=== PATIENT | female | born 1990 | race Caucasian/White ===

== ENCOUNTER → 2024-01-20 | Emergency (ER) | payer BC, OTHER ==
[~2024-01-20] MED LIST: ASPIRIN 81 MG CHEWABLE TABLET ONE; KETOROLAC 30 MG/ML INJ ONE; NA CHLORIDE 0.9% 1,000 ML ONE; POTASSIUM 25 MEQ EFFERV TAB ONE
[2024-01-20 19:15] LABS: Absolute Basophils 0.1 K/uL (0-0.5); Absolute Lymphocytes (CBC) 3.4 K/uL (0.7-4.9); Absolute Monocytes 0.4 K/uL (0.1-1.3); Absolute Neutrophil 3.4 K/uL (1.8-8.0); Basophils % 1.1 % (0-1.3); Eosinophils % 0.3 % (0-4.4); Hematocrit 40.2 % (36.0-45.0); Hemoglobin 13.7 g/dL (12.0-15.0); Lymphocytes % 46.7 % (15.3-44.8); MCH 31.5 pg (27.0-35.0); MCHC 34.1 g/dL (32.0-36.0); MCV 92.4 fL (80-100); MPV 8.2 fL (7.6-11.3); Monocytes % 5.9 % (3.3-12.3); Nucleated Red Blood Cells % 0.1 % (0-0); Platelets 289 thou/uL (152-406); RBC Red Blood Cell Count 4.35 M/uL (3.86-4.86); Red Cell Distribution Width 13.5 % (12.1-15.2)
[2024-01-20 19:19] LABS: PT Prothrombin Time 11.8 SECONDS (9.5-12.5); Protime INR 1.07
[2024-01-20 19:45] LABS: Specific Gravity < 1.005 (1.005-1.030)
[2024-01-20 19:47] LABS: ALT/SGPT 30 U/L (13-56); AST/SGOT 18 U/L (15-37); Albumin 3.8 g/dL (3.4-5.0); Alkaline Phosphatase 93 U/L (45-117); Anion Gap 8.4 mEq/L (5.0-15.0); BUN Blood Urea Nitrogen 7 mg/dL (7-18); Bicarbonate 26 mEq/L (21-32); Bilirubin Total 0.3 mg/dL (0.2-1.0); Glomerular Filtration Rate 81 ml/min (=/>90); Glucose Level 108 mg/dL (74-106); Magnesium 2.2 mg/dL (1.6-2.4); NT PRO-BNP 12 pg/mL (<125); Potassium 3.4 mEq/L (3.5-5.1); Protein, Total 7.8 g/dL (6.4-8.2); Sodium Level 138 mEq/L (136-145)
[2024-01-20 19:52] LABS: Bilirubin Direct < 0.1 mg/dL (0-0.2); Bilirubin Indirect, Calculated ND mg/dL (0.2-0.8); Troponin High Sensitivity < 3.0 pg/mL (<58.9)
[2024-01-20 19:54] LABS: Barbiturates NEGATIVE (NEGATIVE); Benzodiazepines NEGATIVE (NEGATIVE); Cocaine NEGATIVE (NEGATIVE); METHAMPHETAM NEGATIVE (NEGATIVE); Methadone NEGATIVE (NEGATIVE); Opiates NEGATIVE (NEGATIVE); Phencyclidine NEGATIVE (NEGATIVE); THC Cannibis NEGATIVE (NEGATIVE)
[2024-01-20 20:11] LABS: Specific Gravity < 1.005 (1.005-1.030); Sqamous Epithelial <5 /HPF (None Seen); Urine Bacteria None Seen /HPF (<20); Urine Bilirubin NEGATIVE (Negative); Urine Blood Trace (Negative); Urine Clarity Clear (Clear); Urine Color Colorless (Yellow); Urine Culture Reflex Order NOT NEEDED; Urine Glucose NEGATIVE (Negative); Urine Ketones NEGATIVE (Negative); Urine Micro Reflex YN NO BILL MICROSCOPIC; Urine Nitrite NEGATIVE (Negative); Urine Protein NEGATIVE (Negative); Urine RBC <5 /HPF (None Seen); Urine Urobilinogen Normal (Normal); Urine WBC <5 /HPF (<5)
--- NOTE | 2024-01-20 21:02 | RAD REPORT ---
EXAM DESCRIPTION: CT - Angio Aorta For Dissection - 01/20/2024 8:40 pm CLINICAL HISTORY: . Chest and abd pain COMPARISON: None TECHNIQUE: Computed tomography angiography of the chest, abdomen pelvis were obtained. 100 cc Isovue 370 was administered intravenously. Coronal and sagittal reconstruction were performed. MIP 3D reconstruction was performed All CT scans are performed using dose optimization technique as appropriate and may include automated exposure control or mA/KV adjustment according to patient size. FINDINGS: An aortic dissection is not seen. An aortic aneurysm is not displayed. The celiac, SMA and OCTAVIO are patent . A lung consolidation is not present. A pericardial effusion is not seen. A pleural effusion is not no jeff. Prominent left lobe of liver. The spleen, pancreas, adrenals and kidneys do not demonstrate a significant abnormality There no evidence diverticulitis. Normal appendix. No adnexal mass Moderate amount of stool within the colon. Small umbilical hernia IMPRESSION: Negative for an aortic dissection.
--- NOTE | 2024-01-20 21:02 | RAD REPORT ---
EXAM DESCRIPTION: [facility] Single View01/20/2024 7:49 pm CLINICAL HISTORY: Chest pain COMPARISON: none FINDINGS: The lungs appear clear of acute infiltrate. The heart is normal size IMPRESSION: No acute abnormalities displayed
--- NOTE | 2024-01-20 22:53 | EDPHYS ---
Physician Documentation [facility] Name: Adriane Wiggins Age: 33 yrs Sex: Female : 1990 Arrival Date: 01/20/2024 Time: 18:51 Bed 6 Private MD: ED Physician Victor Hugo Reaves HPI: 01/19 19:00 This 33 yrs old Unknown Female presents to ER via Ambulatory with complaints of Chest cp Pain. 19:00 The patient or guardian reports chest pain that is located primarily in the substernal cp area. 19:00 The pain radiates to the left arm, left side of chest. cp 19:00 The chest pain is described as sharp. Duration: The patient or guardian reports a cp single episode, that is still ongoing, and unchanged, onset this morning at work. 19:00 Severity of pain: in the emergency department the pain is unchanged. Patient denies cp family history of early cardiac but reports mother and grandmother with histories of aneurysms. 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 - Social history:: Smoking status: Patient denies any tobacco usage or history of. - Code Status:: Full code. ROS: 19:05 Constitutional: Negative for body aches, chills, fever, poor PO intake, cp 19:05 Cardiovascular: Positive for chest pain, cp 19:05 Eyes: Negative for injury, pain, redness, and discharge, cp 19:05 ENT: Negative for drainage from ear(s), ear pain, sore throat, difficulty swallowing, difficulty handling secretions, 19:05 Respiratory: Negative for cough, shortness of breath, wheezing, 19:05 Abdomen/GI: Negative for abdominal pain, vomiting, diarrhea, constipation, 19:05 Back: Negative for radiated pain, 19:05 MS/extremity: Positive for pain, paresthesias, of the left arm, 19:05 Neuro: Negative for altered mental status, dizziness, headache, syncope, near syncope, cp weakness, 19:05 All other systems are negative, Exam: 19:10 Constitutional: The patient appears in no acute distress, alert, awake, cp non-diaphoretic, non-toxic, well developed, well nourished, uncomfortable, 19:10 Head/Face: Normocephalic, atraumatic. cp 19:10 Eyes: Periorbital structures: appear normal, Conjunctiva: normal, no exudate, no injection, Sclera: no appreciated abnormality, Lids and lashes: appear normal, bilaterally, 19:10 ENT: External ear(s): are unremarkable, Nose: is normal, Mouth: is normal, Posterior pharynx: Airway: no evidence of obstruction, patent, 19:10 Neck: ROM/movement: is normal, is supple, without pain, no range of motions limitations, 19:10 Chest/axilla: Inspection: normal, 19:10 Cardiovascular: Rate: tachycardic, Rhythm: regular, Pulses: Pulses are 2+ in right radial artery and left radial artery. Edema: is not appreciated, JVD: is not appreciated, 19:10 Respiratory: the patient does not display signs of respiratory distress, Respirations: normal, no use of accessory muscles, no retractions, labored breathing, is not present, Breath sounds: are clear throughout, no decreased breath sounds, no stridor, no wheezing, 19:10 Abdomen/GI: Inspection: abdomen appears normal, Palpation: abdomen is soft and non-tender, in all quadrants, 19:10 Back: pain, is absent, ROM is normal, 19:10 Neuro: Orientation: to person, place \T\ time. Mentation: is normal, Motor: moves all fours, strength is normal, Sensation: no obvious gross deficits, 19:12 ECG was reviewed by the Attending Physician. cp Vital Signs: 19:02 BP 130 / 94; Pulse 107; Resp 16; Temp 98.4; Pulse Ox 100% on R/A; Weight 74.84 kg; mb9 Height 5 ft. 5 in. ; 20:26 BP 116 / 73; Pulse 80; Resp 16; Pulse Ox 100% ; Pain 5/10; bm8 21:31 BP 119 / 94; Pulse 95; Resp 20; Temp 98.4; Pulse Ox 99% on R/A; Pain 4/10; bm8 22:32 BP 110 / 73; Pulse 87; Resp 16; Temp 98.4; Pulse Ox 100% ; Pain 4/10; bm8 23:11 BP 113 / 80; Pulse 100; Resp 20; Temp 98.1; Pulse Ox 99% on R/A; Pain 0/10; bm8 19:02 Body Mass Index 27.46 (74.84 kg, 165.1 cm) mb9 20:26 Pain Scale: Adult bm8 21:31 Pain Scale: Adult bm8 22:32 Pain Scale: Adult bm8 23:11 Pain Scale: Adult bm8 [place] Coma Score: 19:13 Eye Response: spontaneous(4). Motor Response: obeys commands(6). Verbal Response: bm8 oriented(5). Total: 15. MDM: 19:00 Patient medically screened. cp 20:00 Differential diagnosis: acute myocardial infarction, anxiety, chest wall pain, cp cholecystitis, Cholelithiasis costochondritis, esophagitis, pleurisy, pneumonia, pneumothorax, pulmonary embolus, thoracic aortic disection. 22:50 Data reviewed: vital signs, nurses notes, lab test result(s), EKG, radiologic studies, cp CT scan, plain films. 22:50 Independent interpretation of the following test(s) in the Emergency Department EKG: cp See my EKG interpretation above. Counseling: I had a detailed discussion with the patient and/or guardian regarding the historical points, exam findings, and any diagnostic results supporting the discharge/admit diagnosis, lab results, radiology results, the need for outpatient follow up, a ammonia solution preparer, to return to the emergency department if symptoms worsen or persist or if there are any questions or concerns that arise at home. Response to treatment: the patient's symptoms have markedly improved after treatment, and as a result, I will discharge patient. Special discussion: Based on the patient's history, exam, and Dx evaluation, there is no indication for emergent intervention or inpatient Tx. It is understood by the patient/guardian that if the Sx's persist or worsen they need to return immediately for re-evaluation. 01/19 19:04 Order name: Basic Metabolic Panel; Complete Time: 20:19 cp 01/19 20:19 Interpretation: Normal except: K 3.4; GLUC 108; GFR 81. cp 01/19 19:04 Order name: CBC with Diff; Complete Time: 19:36 cp 01/19 19:04 Order name: D-Dimer; Complete Time: 19:36 cp 01/19 19:04 Order name: LFT's; Complete Time: 20:19 cp 01/19 19:04 Order name: Magnesium; Complete Time: 20:19 cp 01/19 19:04 Order name: NT PRO-BNP; Complete Time: 20:19 cp 01/19 19:04 Order name: PT-INR; Complete Time: 19:36 cp 01/19 19:04 Order name: Troponin HS; Complete Time: 20:19 cp 01/19 19:04 Order name: Urinalysis W/Microscopic; Complete Time: 20:19 cp 01/19 19:04 Order name: UDS; Complete Time: 20:19 cp 01/19 19:04 Order name: Test, Urine; Complete Time: 20:19 cp 01/19 21:28 Order name: Troponin High Sensitivity: 3 hr repeat \[id number]; Complete Time: 22:50 cp 01/19 22:50 Interpretation: Reviewed. cp 01/19 19:04 Order name: XRAY Chest (1 view); Complete Time: 21:12 cp 01/19 21:12 Interpretation: Report review. cp 01/19 19:37 Order name: CT Aorta for Dissection; Complete Time: 21:12 cp 01/19 21:13 Interpretation: Report reviewed. cp 01/19 19:04 Order name: EKG; Complete Time: 19:04 cp 01/19 19:04 Order name: Cardiac monitoring; Complete Time: 19:05 cp 01/19 19:04 Order name: EKG - Nurse/Tech; Complete Time: 19:11 cp 01/19 19:04 Order name: IV Saline Lock; Complete Time: 19:05 cp 01/19 19:04 Order name: Labs collected and sent; Complete Time: 19:05 cp 01/19 19:04 Order name: O2 Per Protocol; Complete Time: 19:05 cp 01/19 19:04 Order name: O2 Sat Monitoring; Complete Time: 19:05 cp EC:12 Rate is 87 beats/min. Rhythm is regular. [place] interval is normal. QRS interval is normal. cp QT interval is normal. Interpreted by me. Reviewed by me. Administered Medications: 19:28 Drug: NS 0.9% IV 1000 ml IV at 1 bolus Per protocol; 1000 mL bolus Route: IV; Rate: 1 bm8 bolus; Site: right antecubital; 21:30 Follow up: IV Status: Completed infusion; IV Intake: 1000ml bm8 21:31 Not Given (Patient Refused): [id number] mg IVP once bm8 21:42 Drug: Aspirin PO Chewable Tablet 324 mg PO once; 81 mg tablets x 4 Route: PO; bm8 22:31 Follow up: Response: No adverse reaction bm8 23:11 Drug: Potassium PO Effervescent Tablet 25 mEq PO once; dissolve in 4 ounces of water or bm8 juice Route: PO; 23:11 Follow up: Response: No adverse reaction bm8 Disposition Summary: 01/20/24 22:52 Discharge Ordered Notes: Location: Home cp Problem: new cp Symptoms: have improved cp Condition: Stable cp Diagnosis - Chest pain, unspecified cp Followup: cp - With: Christopher Lacy MD - When: 2 - 3 days - Reason: Recheck today's complaints Discharge Instructions: - Discharge Summary Sheet cp - Nonspecific Chest Pain, Adult cp Forms: - Medication Reconciliation Form cp - Thank You Letter cp - Antibiotic Education cp - Prescription Opioid Use cp - Patient Portal Instructions cp - Leadership Thank You Letter cp Prescriptions: - Ibuprofen 800 mg Oral Tablet - take 1 tablet ORAL route every 8 hours As needed take with food; 30 tablet; cp Refills: 0, Product Selection Permitted Signatures: Dispatcher [employer] EDBennett Grady PA PA cp Breneman, Mary Beth RN RN mb9 Farhat Ley RN RN bm8
--- NOTE | 2024-01-20 22:53 | ER ---
Nurse's Notes [facility] Name: Adriane Wiggins Age: 33 yrs Sex: Female : 1990 Arrival Date: 01/20/2024 Time: 18:51 Bed 6 Private MD: Diagnosis: Chest pain, unspecified Presentation: 01/19 19:02 Chief complaint: Patient states: "I have left sided chest pain that started this mb9 morning and radiates down my left arm.". Coronavirus screen: Vaccine status: Patient reports receiving the 2nd dose of the covid vaccine. Ebola Screen: No symptoms or risks identified at this time. Initial Sepsis Screen: Does the patient meet any 2 criteria? No. Patient's initial sepsis screen is negative. Does the patient have a suspected source of infection? No. Patient's initial sepsis screen is negative. Risk Assessment: Do you want to hurt yourself or someone else? Patient reports no desire to harm self or others. Onset of symptoms was January 20, 2024. 19:02 Method Of Arrival: Ambulatory mb9 19:02 Acuity: VERONICA 3 mb9 Triage Assessment: 19:04 General: Appears in no apparent distress. Behavior is anxious. Pain: Complains of pain mb9 in chest Pain radiates to left arm. Pain: Quality of pain is described as dull, heavy, Pain began suddenly, Is continuous. EENT: No signs and/or symptoms were reported regarding the EENT system. Neuro: Level of Consciousness is awake, alert, obeys commands, Oriented to person, place, time, situation, Appropriate for age. Cardiovascular: Reports chest pain, Patient's skin is warm and dry. Respiratory: Airway is patent Respiratory effort is even, unlabored, Respiratory pattern is regular, symmetrical. GI: No signs and/or symptoms were reported involving the gastrointestinal system. Musculoskeletal: Range of motion: intact in all extremities. 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 - Social history:: Smoking status: Patient denies any tobacco usage or history of. - Code Status:: Full code. Screenin:13 [facility] ED Fall Risk Assessment (Adult) History of falling in the last 3 months, bm8 including since admission No falls in past 3 months (0 pts) Confusion or Disorientation No (0 pts) Intoxicated or Sedated No (0 pts) Impaired Gait No (0 pts) Mobility Assist Device Used No (0 pt) Altered Elimination No (0 pt) Score/Fall Risk Level 0 - 2 = Low Risk Oriented to surroundings, Maintained a safe environment, Educated pt \\T\\ family on fall prevention, incl call for assistance when getting out of bed. Abuse screen: Denies threats or abuse. Nutritional screening: No deficits noted. Tuberculosis screening: No symptoms or risk factors identified. Assessment: 19:13 Pain: Complains of pain in chest Pain does not radiate. Pain currently is 6 out of 10 bm8 on a pain scale. Quality of pain is described as dull. 19:13 Reassessment: Patient appears in no apparent distress at this time. Patient is alert, bm8 oriented x 3, equal unlabored respirations, skin warm/dry/pink. General: Appears in no apparent distress. comfortable, Behavior is calm, cooperative. Neuro: No deficits noted. Level of Consciousness is awake, alert, obeys commands, Oriented to person, place, time, situation, [employer] Engineer are equal bilaterally Moves all extremities. Gait is steady, Speech is normal. Cardiovascular: Reports chest pain, Heart tones S1 S2 Capillary refill < 3 seconds Patient's skin is warm and dry. Rhythm is sinus rhythm. Respiratory: No deficits noted. Airway is patent Respiratory effort is even, unlabored, Respiratory pattern is regular. GI: No signs and/or symptoms were reported involving the gastrointestinal system. : No signs and/or symptoms were reported regarding the genitourinary system. EENT: No signs and/or symptoms were reported regarding the EENT system. Derm: No signs and/or symptoms reported regarding the dermatologic system. Musculoskeletal: No signs and/or symptoms reported regarding the musculoskeletal system. 20:25 Reassessment: Patient appears in no apparent distress at this time. No changes from bm8 previously documented assessment. pt reports odd right feeling in right arm that is coming and going. made aware. pt awaiting ct scan. 21:28 Reassessment: Patient appears in no apparent distress at this time. Patient is alert, bm8 oriented x 3, equal unlabored respirations, skin warm/dry/pink. General: Appears in no apparent distress. comfortable, Behavior is calm, cooperative. Pain:. Neuro: No deficits noted. Cardiovascular: Reports no pain but still has weird feeling in left arm. Respiratory: No deficits noted. Airway is patent Respiratory effort is even, unlabored, Respiratory pattern is regular. GI: No deficits noted. : No deficits noted. EENT: No deficits noted. Derm: No deficits noted. Vital Signs: 19:02 BP 130 / 94; Pulse 107; Resp 16; Temp 98.4; Pulse Ox 100% on R/A; Weight 74.84 kg; mb9 Height 5 ft. 5 in. ; 20:26 BP 116 / 73; Pulse 80; Resp 16; Pulse Ox 100% ; Pain 5/10; bm8 21:31 BP 119 / 94; Pulse 95; Resp 20; Temp 98.4; Pulse Ox 99% on R/A; Pain 4/10; bm8 22:32 BP 110 / 73; Pulse 87; Resp 16; Temp 98.4; Pulse Ox 100% ; Pain 4/10; bm8 23:11 BP 113 / 80; Pulse 100; Resp 20; Temp 98.1; Pulse Ox 99% on R/A; Pain 0/10; bm8 19:02 Body Mass Index 27.46 (74.84 kg, 165.1 cm) mb9 20:26 Pain Scale: Adult bm8 21:31 Pain Scale: Adult bm8 22:32 Pain Scale: Adult bm8 23:11 Pain Scale: Adult bm8 Vitals: 19:13 Cardiac Rhythm Assessment Regular Sinus rhythm. bm8 [place] Coma Score: 19:13 Eye Response: spontaneous(4). Motor Response: obeys commands(6). Verbal Response: bm8 oriented(5). Total: 15. ED Course: 18:54 Patient arrived in ED. im 18:54 Bennett Mendes PA is PHCP. cp 18:54 Abdoul Veliz MD is Attending Physician. cp 18:56 Nawaf Coleman, RN is Primary Nurse. bp 19:02 Arm band placed on. mb9 19:02 No provider procedures requiring assistance completed. Inserted saline lock: 18 gauge mb9 in right antecubital area, using aseptic technique. Blood collected. 19:03 Triage completed. mb9 19:11 Basic Metabolic Panel Sent. bm8 19:11 CBC with Diff Sent. bm8 19:11 D-Dimer Sent. bm8 19:11 LFT's Sent. bm8 19:11 Magnesium Sent. bm8 19:11 NT PRO-BNP Sent. bm8 19:11 PT-INR Sent. bm8 19:11 Troponin HS Sent. bm8 19:13 Patient has correct armband on for positive identification. Placed in gown. Bed in low bm8 position. Call light in reach. Side rails up X 1. color television console monitor on. Pulse ox on. NIBP on. Door closed. Noise minimized. 19:13 Patient maintains SpO2 saturation greater than 95% on room air. bm8 19:22 Urinalysis W/Microscopic Sent. km8 19:22 UDS Sent. km8 19:22 Test, Urine Sent. km8 19:22 Urine collected: clean catch specimen. km8 19:51 XRAY Chest (1 view) In Process Unspecified. EDMS 20:30 Victor Hugo Reaves MD is Attending Physician. cp 20:41 CT Aorta for Dissection In Process Unspecified. EDMS 22:52 Christopher Lacy MD is Referral Physician. cp 23:12 Provided Education on: dcc instructions. bm8 23:12 IV discontinued, intact, bleeding controlled, No redness/swelling at site. Pressure bm8 dressing applied. Administered Medications: 19:28 Drug: NS 0.9% IV 1000 ml IV at 1 bolus Per protocol; 1000 mL bolus Route: IV; Rate: 1 bm8 bolus; Site: right antecubital; 21:30 Follow up: IV Status: Completed infusion; IV Intake: 1000ml bm8 21:31 Not Given (Patient Refused): [id number] mg IVP once bm8 21:42 Drug: Aspirin PO Chewable Tablet 324 mg PO once; 81 mg tablets x 4 Route: PO; bm8 22:31 Follow up: Response: No adverse reaction bm8 23:11 Drug: Potassium PO Effervescent Tablet 25 mEq PO once; dissolve in 4 ounces of water or bm8 juice Route: PO; 23:11 Follow up: Response: No adverse reaction bm8 Medication: 19:13 VIS not applicable for this client. bm8 Intake: 21:30 IV: 1000ml; Total: 1000ml. bm8 Outcome: 22:52 Discharge ordered by . cp 23:12 Discharged to home ambulatory, bm8 23:12 Condition: stable 23:12 Discharge instructions given to patient, Instructed on discharge instructions, follow up and referral plans. medication usage, safety practices, Demonstrated understanding of instructions, follow-up care, medications, Prescriptions given X 1, 23:14 Patient left the ED. bm8 Signatures: Dispatcher [employer] EDMS Bennett Mendes PA PA cp Peltier, Brian, RN RN bp Argelia Natarajan RN RN mb9 Donna Pryor Katie RN RN km8 Farhat Ley RN RN bm8
[2024-01-20 23:51] VITALS: BP 113/80; TEMP 98.1; O2SAT 99
--- NOTE | 2024-01-21 17:03 | EKG ---
Test Date: 2024-01-20 Test Time: 18:06:56 [employer] Supervisor: JOY MEASUREMENT RESULTS: Intervals: Rate: 87 NV: 140 QRSD: 76 QT: 370 QTc: 445 [place]: P: 80 NV: 140 QRS: 46 T: 66 INTERPRETIVE STATEMENTS: Normal sinus rhythm Normal ECG No previous ECG available for comparison Electronically Signed On 01-21-24 17:00:27 CDT by Christopher Lacy
== END ==
LOC: ER 18:51
DX: R07.9 Chest pain, unspecified (principal); E06.3 Autoimmune thyroiditis
CPT/HCPCS: 96361; 93005; 85025; 81001; 80048; 36415; 83735; 81025; 85610; 85379; 80076; 84484 ×2; 83880; 80307; 71275; 74175; 71045; 96360; 99285; Q9967; J7030

== ENCOUNTER → 2024-08-11 | Day surgery (SDC) | payer OTHER ==
--- NOTE | 2024-08-11 20:40 | RAD REPORT ---
Exam:Breast Core BX w/US Guidance CLINICAL HISTORY: Right breast mass iICD N63.15 TECHNIQUE: The risks, benefits and alternatives to procedure were explained to the patient and informed consent obtained. Prior ultrasound was reviewed. Skin and deeper tissues were anesthetized with lidocaine. Under sonographic guidance two 14-gauge vacuum-assisted core biopsies of the 2.2 cm right breast mass were obtained. The specimens were given to pathology. Subsequently a localizing clip was placed into the mass. Pressure was applied to the biopsy site. Patient experienced immediate complication. IMPRESSION: Core biopsies of the right breast mass
== END ==
LOC: DS 08:30
PROVIDERS: ATTEND Nurse Practitioner Women's Health
PROC: 0H9T3ZX Drainage of Right Breast, Percutaneous Approach, Diagnostic (ICD-10-PCS; principal; 2024-08-11)
DX: D24.1 Benign neoplasm of right breast (principal)
CPT/HCPCS: 19083; 88305